=== PATIENT | male | born 1975 | race Caucasian/White ===

== ENCOUNTER → 2023-06-01 | Emergency (ER) | payer OTHER ==
[~2023-06-01] MED LIST: ASPIRIN 81 MG CHEWABLE TABLET ONE; LEVOTHYROXINE SOD 0.05 MG TABLET ONE; NA CHLORIDE 0.9% 1,000 ML ONE
[2023-06-01 22:29] LABS: Absolute Lymphocytes (CBC) 1.9 K/uL (0.7-4.9); Hematocrit 42.5 % (39.6-49.0); MCV 87.3 fL (80-100); Platelets 213 thou/uL (152-406); RBC Red Blood Cell Count 4.87 M/uL (4.33-5.43)
[2023-06-01 22:38] LABS: Protime INR 1.15
[2023-06-01 22:54] LABS: Albumin 3.7 g/dL (3.4-5.0); Bilirubin Direct 0.1 mg/dL (0-0.2); Bilirubin Indirect, Calculated 0.4 mg/dL (0.2-0.8); Bilirubin Total 0.5 mg/dL (0.2-1.0); Magnesium 1.7 mg/dL (1.6-2.4); Potassium 3.5 mEq/L (3.5-5.1); Troponin High Sensitivity 4.9 pg/mL (<58.9)
[2023-06-01 22:56] LABS: Thyroid Stimulating Hormone 9.61 uIU/mL (0.358-3.740)
--- NOTE | 2023-06-02 01:15 | ER ---
Nurse's Notes [facility] Name: Jhonny Renteria Jr Age: 47 yrs Sex: Male : 1975 Arrival Date: 06/01/2023 Time: 21:30 Bed 6 Private MD: Diagnosis: Syncope Near;Hypothyroidism, unspecified Presentation: 06/01 21:56 Chief complaint: Patient states: near syncope episode. Coronavirus screen: Client nw1 denies travel out of the [place] in the last 14 days. At this time, the client does not indicate any symptoms associated with coronavirus-19. Ebola Screen: Patient negative for fever greater than or equal to 101.5 degrees Fahrenheit, and additional compatible Ebola Virus Disease symptoms Patient denies exposure to infectious person. Patient denies travel to an Ebola-affected area in the 21 days before illness onset. No symptoms or risks identified at this time. Initial Sepsis Screen: Does the patient meet any 2 criteria? No. Patient's initial sepsis screen is negative. Does the patient have a suspected source of infection? No. Patient's initial sepsis screen is negative. Risk Assessment: Do you want to hurt yourself or someone else? Patient reports no desire to harm self or others. Onset of symptoms was June 01, 2023. 21:56 Method Of Arrival: EMS: [facility] nw1 21:56 Acuity: HALIMA 3 nw1 21:56 Chief complaint: Chief complaint: Patient states: pt was sitting in chair and felt a nw1 cramp in the left upper deltoid that started to radiate to jaw. After feeling that sensation, pt states that he started to feel as if he was going to "pass out". Pt denies any symptoms at the time of this assessment. Call light and family at bedside. Triage Assessment: 21:58 General: Appears in no apparent distress. comfortable, Behavior is calm, cooperative, nw1 appropriate for age. Pain: Complains of pain in anterior aspect of left shoulder Pain radiates to left lateral aspect of neck. Neuro: No deficits noted. Cardiovascular: Denies chest pain. Respiratory: No deficits noted. GI: No deficits noted. No signs and/or symptoms were reported involving the gastrointestinal system. : No deficits noted. No signs and/or symptoms were reported regarding the genitourinary system. Derm: No deficits noted. No signs and/or symptoms reported regarding the dermatologic system. Musculoskeletal: No deficits noted. No signs and/or symptoms reported regarding the musculoskeletal system. Historical: - Allergies: 21:58 No Known Allergies; nw1 - Home Meds: 21:58 levothyroxine 50 mcg capsule [Active]; nw1 - Immunization history:: Adult Immunizations up to date. - Social history:: Smoking status: Patient denies any tobacco usage or history of. Patient uses alcohol, caffeine, Patient/guardian denies using street drugs, IV drugs, over the counter diet medications, tobacco products. - Family history:: not pertinent. Screenin:04 [facility] ED Fall Risk Assessment (Adult) History of falling in the last 3 months, nw1 including since admission No falls in past 3 months (0 pts) Confusion or Disorientation No (0 pts) Intoxicated or Sedated No (0 pts) Impaired Gait No (0 pts) Mobility Assist Device Used No (0 pt) Altered Elimination No (0 pt) Score/Fall Risk Level 0 - 2 = Low Risk Oriented to surroundings, Maintained a safe environment, Educated pt \\T\\ family on fall prevention, incl call for assistance when getting out of bed, Assessed \\T\\ reinforced patient's understanding of fall precautions, Provided non-skid footwear, Hourly rounding (assess needs \\T\\ fall precautionary measures) done. 22:04 Abuse screen: Denies threats or abuse. Denies injuries from another. nw1 22:04 Nutritional screening: No deficits noted. Tuberculosis screening: No symptoms or risk nw1 factors identified. Assessment: 22:04 Reassessment: See triage note. Pt placed into gown and orders started. nw06/02 01:14 Reassessment: Dr. Eugenio Bryant in to speak w/ patient. Pt wants to go home now. Requested la4 IV to be taken out as pt stated he was going home and had to urinate. Pt tolerated well without difficulty. Vital Signs: 06/01 21:56 BP 134 / 88; Pulse 82; Resp 17; Pulse Ox 97% on R/A; Weight 97.52 kg; Height 5 ft. 8 nw1 in. ; 22:26 BP 119 / 76 Supine; Pulse 84; Resp 13; Pulse Ox 98% ; nw1 22:28 BP 134 / 95 Sitting; Pulse 91; Resp 16; Pulse Ox 98% on R/A; nw1 22:30 BP 136 / 96 Standing; Pulse 100; Resp 14; Pulse Ox 99% on R/A; nw1 06/02 00:25 BP 135 / 91; Pulse 86; Resp 20; Temp 98.4; Pulse Ox 98% on R/A; Pain 0/10; la4 00:30 BP 135 / 81; Pulse 86; la4 06/01 21:56 Body Mass Index 32.69 (97.52 kg, 172.72 cm) nw1 06/02 00:25 Pain Scale: Adult la4 Hayden Coma Score: 06/01 22:04 Eye Response: spontaneous(4). Motor Response: obeys commands(6). Verbal Response: nw1 oriented(5). Total: 15. 06/02 00:25 Eye Response: spontaneous(4). Motor Response: obeys commands(6). Verbal Response: la4 oriented(5). Total: 15. ED Course: 06/01 21:47 Patient arrived in ED. lg3 21:48 Eugenio Guzman MD is Attending Physician. sp4 21:52 Mary Kate Singer, TOBI is Primary Nurse. nw1 21:58 Triage completed. nw1 21:58 Arm band placed on right wrist. EKG completed in triage. Results shown to MD. EKG done nw1 per protocol. Labs ordered per protocol. 22:04 Patient has correct armband on for positive identification. Placed in gown. Bed in low nw1 position. Call light in reach. Side rails up X2. Adult w/ patient. Provided Education on: POC. 22:04 Client placed on continuous cardiac and pulse oximetry monitoring. NIBP monitoring nw1 applied. spray ii painter on. Pulse ox on. NIBP on. Door closed. Warm blanket given. 22:04 No provider procedures requiring assistance completed. Maintain EMS IV. Dressing nw1 intact. Good blood return noted. Site clean \\T\\ dry. Gauge \\T\\ site: 20 G LAC. 22:06 Radiology exam delayed due to lab results not completed at this time. (BUN/Creatinine). eh4 22:13 Basic Metabolic Panel Sent. nw1 22:24 TSH Sent. nw1 22:24 T4 Free Sent. nw1 22:24 CBC with Diff Sent. nw 22:24 LFT's Sent. nw1 22:24 Magnesium Sent. nw1 22:24 NT PRO-BNP Sent. nw1 22:24 PT-INR Sent. nw1 22:24 Troponin HS Sent. nw1 23:24 CT Aorta for Dissection In Process Unspecified. EDMS 06/02 00:25 IV discontinued, intact, bleeding controlled, No redness/swelling at site. Pressure la4 dressing applied. Administered Medications: 06/01 22:11 Drug: Aspirin PO Chewable Tablet 324 mg PO once; 81 mg tablets x 4 Route: PO; la4 22:11 Drug: NS 0.9% IV 1000 ml IV at 1 bolus Per protocol; 1000 mL bolus Route: IV; Rate: 1 la4 bolus; Site: left antecubital; 06/02 00:30 Follow up: BP 135 / 81; Pulse 86 bpm; Response: No adverse reaction; Marked relief of la4 symptoms; IV Status: Completed infusion; IV Intake: 1000ml 00:30 Drug: Synthroid PO 50 mcg PO once Route: PO; la4 Medication: 06/01 22:04 VIS not applicable for this client. nw1 Intake: 06/02 00:30 IV: 1000ml; Total: 1000ml. la4 Outcome: 00:25 Discharged to home with significant other, la4 00:25 Condition: stable 00:25 Discharge instructions given to patient, significant other, Instructed on discharge instructions, follow up and referral plans. Demonstrated understanding of instructions, follow-up care, medications, 01:15 Discharge ordered by . sp4 01:23 Patient left the ED. nw1 Signatures: Dispatcher [employer] EDMS Joie Caba RN RN 3 Cesar Echols [facility] Eugenio Guzman MD MD sp4 Conrado Pak RN RN la4 Mary Kate Singer, TOBI RN nw1 Corrections: (The following items were deleted from the chart) 06/01 22:24 21:56 97.52 kg; Height 5 ft. 8 in.; BMI: 32.6; nw1 nw1
--- NOTE | 2023-06-02 01:15 | EDPHYS ---
Physician Documentation [facility] Name: Jhonny Renteria Jr Age: 47 yrs Sex: Male : 1975 Arrival Date: 06/01/2023 Time: 21:30 Bed 6 Private MD: ED Physician Eugenio Guzman HPI: 06/01 21:51 This 47 yrs old Male presents to ER via Unassigned with complaints of Near sp4 syncope, left shoulder pain. 06/02 00:08 Patient is a 47-year-old male who presents with EMS for acute onset of left shoulder sp4 and left neck pain just prior to arrival associated with dizziness and near syncopal episode at work. Patient was initially tachycardic at 122- 106 heart rate is noted by EMS, blood pressure was fairly normal . Denies history of hypothyroidism and he should be on Synthroid 50 mcg daily but he has not been on it for probably 2 months.. Patient states he ran out of his medication and never bothered to refill it. Has no history of syncope or near syncope. States that this time he feels pretty good.. Historical: - Allergies: 06/01 21:58 No Known Allergies; nw1 - Home Meds: 21:58 levothyroxine 50 mcg capsule [Active]; nw1 - Immunization history:: Adult Immunizations up to date. - Social history:: Smoking status: Patient denies any tobacco usage or history of. Patient uses alcohol, caffeine, Patient/guardian denies using street drugs, IV drugs, over the counter diet medications, tobacco products. - Family history:: not pertinent. ROS: 06/02 00:08 Constitutional: Negative for fever, chills, and weight loss, positive near syncope and sp4 positive left shoulder pain. All other systems are negative, Exam: 00:08 Constitutional: This is a well developed, well nourished patient who is awake, alert, sp4 and in no acute distress. Head/Face: Normocephalic, atraumatic. Eyes: Pupils equal round and reactive to light, extra-ocular motions intact. Lids and lashes normal. Conjunctiva and sclera are not injected. Cornea within normal limits. Periorbital areas with no swelling, redness, or edema. ENT: Nares patent. No nasal discharge, no septal abnormalities noted. Tympanic membranes are normal and external auditory canals are clear. Oropharynx with no redness, swelling, or masses, exudates, or evidence of obstruction, uvula midline. Mucous membranes moist. Neck: Trachea midline, no thyromegaly or masses palpated, and no cervical lymphadenopathy. Supple, full range of motion without nuchal rigidity, or vertebral point tenderness. Chest/axilla: Normal chest wall appearance and motion. Nontender with no deformity. No lesions are appreciated. Cardiovascular: Regular rate and rhythm with a normal S1 and S2. No gallops, murmurs, or rubs. Normal PMI, no JVD. No pulse deficits. Respiratory: Lungs have equal breath sounds bilaterally, clear to auscultation and percussion. No rales, rhonchi or wheezes noted. No increased work of breathing, no retractions or nasal flaring. Abdomen/GI: Soft, non-tender, with normal bowel sounds. No distension or tympany. No guarding or rebound. No evidence of tenderness throughout. Back: No spinal tenderness. No costovertebral tenderness. There is sacral decubitus ulcer that is covered by the wound VAC. Skin: Warm, dry with normal turgor. Normal color with no rashes, no lesions, and no evidence of cellulitis. MS/ Extremity: Pulses equal, no cyanosis. Neurovascular intact. Full, normal range of motion. Neuro: Awake and alert, GCS 15, oriented to person, place, time, and situation. Cranial nerves II-XII grossly intact. Motor strength 5/5 in all extremities. Sensory grossly intact. Psych: Awake, alert, with orientation to person, place and time. Behavior, mood, and affect are within normal limits 00:09 ECG was reviewed by the Attending Physician. EKG 2210. EKG at 2210 reveals normal sp4 sinus rhythm at a rate of 87. No ectopy. Vital Signs: 06/01 21:56 BP 134 / 88; Pulse 82; Resp 17; Pulse Ox 97% on R/A; Weight 97.52 kg; Height 5 ft. 8 nw1 in. ; 22:26 BP 119 / 76 Supine; Pulse 84; Resp 13; Pulse Ox 98% ; nw1 22:28 BP 134 / 95 Sitting; Pulse 91; Resp 16; Pulse Ox 98% on R/A; nw1 22:30 BP 136 / 96 Standing; Pulse 100; Resp 14; Pulse Ox 99% on R/A; nw1 06/02 00:25 BP 135 / 91; Pulse 86; Resp 20; Temp 98.4; Pulse Ox 98% on R/A; Pain 0/10; la4 00:30 BP 135 / 81; Pulse 86; la4 06/01 21:56 Body Mass Index 32.69 (97.52 kg, 172.72 cm) nw1 06/02 00:25 Pain Scale: Adult la4 Lykens Coma Score: 06/01 22:04 Eye Response: spontaneous(4). Motor Response: obeys commands(6). Verbal Response: nw1 oriented(5). Total: 15. 06/02 00:25 Eye Response: spontaneous(4). Motor Response: obeys commands(6). Verbal Response: la4 oriented(5). Total: 15. MDM: 06/01 22:04 Patient medically screened. sp4 06/02 01:12 ED course: EXAM: CTAngiography Chest, Abdomen and Pelvis With Intravenous Contrast sp4 CLINICAL HISTORY: The patient is 47 years old and is Male; chest pain , near syncope TECHNIQUE: Axial computed tomographic angiography images of the chest, abdomen and pelvis with intravenous contrast. Sagittal and coronal reformatted images were created and reviewed. This CT exam was performed using one or more of the following dose reduction techniques: automated exposure control, adjustment of the mA and/or kV according to patient size, and/or use of iterative reconstruction technique. MIP reconstructed images were created and reviewed. COMPARISON: No relevant prior studies available. FINDINGS: VASCULATURE: Aorta: No acute findings. No aortic aneurysm. No dissection. Pulmonary arteries: Unremarkable as visualized. No pulmonary embolism is identified. Great vessels of aortic arch: No acute findings. No dissection. No arterial occlusion or significant stenosis. Celiac trunk and mesenteric arteries: No acute findings. No occlusion or significant stenosis. Renal arteries: No acute findings. No occlusion or significant stenosis. Iliac arteries: No acute findings. No occlusion or significant stenosis. CHEST: Lungs: Calcified granuloma in the right lung base. No mass. No consolidation. Pleural space: Unremarkable. No significant effusion. No pneumothorax. Heart: Unremarkable. No cardiomegaly. No significant pericardial effusion. Mediastinum: There may be a small hiatal hernia. ABDOMEN: Liver: 1.5 cm hypoattenuating lesion in the right anterior liver which is nonspecific but may represent a hemangioma. Gallbladder and bile ducts: Unremarkable. No calcified stones. No ductal dilation. Pancreas: Unremarkable. No ductal dilation. No mass. Spleen: Unremarkable. No splenomegaly. Adrenals: Unremarkable. No mass. Kidneys and ureters: Unremarkable. No hydronephrosis. No solid mass. Stomach and bowel: Scattered colonic diverticula. No obstruction. No mucosal thickening. PELVIS: Appendix: The appendix is normal. Bladder: Unremarkable. No mass. Reproductive: Unremarkable as visualized. CHEST, ABDOMEN and PELVIS: Intraperitoneal space: Unremarkable. No significant fluid collection. No free air. Bones/joints: Partially visualized postsurgical changes in the lower cervical spine. No acute fracture. No dislocation. Soft tissues: Mild gynecomastia. Lymph nodes: Unremarkable. No enlarged lymph nodes. IMPRESSION: No acute findings in the visualized arteries of the chest, abdomen or pelvis. . 01:18 Differential Diagnosis altered mental status, sepsis, flu. Data reviewed: vital signs, 4 nurses notes, EMS record, lab test result(s), cardiac enzymes, CBC, hepatic panel, EKG, radiologic studies, CT scan. Consideration of Admission/Observation Escalation of care including admission/observation considered. ED course: TSH elevated but other than that unremarkable workup. Patient stable for discharge home. Advised to restart Synthroid 50 mcg daily. Will advise follow-up with manager orange in 7 to 10 days. Return to ER precautions discussed with patient in detail.. 06/01 21:49 Order name: Basic Metabolic Panel; Complete Time: 00:04 [facility] 06/01 21:49 Order name: CBC with Diff; Complete Time: 00:04 [facility] 06/01 21:49 Order name: LFT's; Complete Time: 00:04 [facility] 06/01 21:49 Order name: Magnesium; Complete Time: 00:04 [facility] 06/01 21:49 Order name: NT PRO-BNP; Complete Time: 00:04 [facility] 06/01 21:49 Order name: PT-INR; Complete Time: 00:04 [facility] 06/01 21:49 Order name: Troponin HS; Complete Time: 00:04 [facility] 06/01 21:49 Order name: TSH; Complete Time: 00:04 [facility] 06/01 21:49 Order name: T4 Free; Complete Time: 00:04 [facility] 06/01 21:49 Order name: CT Aorta for Dissection sp4 06/01 21:49 Order name: EKG; Complete Time: 21:49 sp4 06/01 21:49 Order name: Cardiac monitoring; Complete Time: 22:06 sp4 06/01 21:49 Order name: EKG - Nurse/Tech; Complete Time: 22:13 sp4 06/01 21:49 Order name: IV Saline Lock; Complete Time: 22:13 sp4 06/01 21:49 Order name: Labs collected and sent; Complete Time: 22:13 sp4 06/01 21:49 Order name: O2 Per Protocol; Complete Time: 22:13 sp4 06/01 21:49 Order name: O2 Sat Monitoring; Complete Time: 22:13 sp4 06/01 21:50 Order name: Orthostatic Blood Pressure; Complete Time: :31 sp4 EC:09 Rate is 87 beats/min. Rhythm is regular, Normal Sinus Rhythm. QRS Bailey is Normal. LA sp4 interval is normal. QRS interval is normal. QT interval is normal. No Q waves. T waves are Normal. No ST changes noted. Clinical impression: Normal ECG. Interpreted by me. Reviewed by me. Administered Medications: 06/01 22:11 Drug: Aspirin PO Chewable Tablet 324 mg PO once; 81 mg tablets x 4 Route: PO; la4 22:11 Drug: NS 0.9% IV 1000 ml IV at 1 bolus Per protocol; 1000 mL bolus Route: IV; Rate: 1 la4 bolus; Site: left antecubital; 06/02 00:30 Follow up: BP 135 / 81; Pulse 86 bpm; Response: No adverse reaction; Marked relief of la4 symptoms; IV Status: Completed infusion; IV Intake: 1000ml 00:30 Drug: Synthroid PO 50 mcg PO once Route: PO; la4 Disposition Summary: 06/02/23 01:15 Discharge Ordered Notes: Please see your primary MD for medication refills Location: Home sp4 Problem: new sp4 Symptoms: have improved sp4 Condition: Stable sp4 Diagnosis - Syncope Near sp4 - Hypothyroidism, unspecified sp4 Followup: sp4 - With: Private Physician - When: 7 - 10 days - Reason: Recheck today's complaints Discharge Instructions: - Discharge Summary Sheet sp4 - Hypothyroidism sp4 Forms: - Patient Portal Instructions sp4 Prescriptions: - Synthroid 50 mcg Oral tablet - take 1 tablet ORAL route daily; 30 tablet; Refills: 0, Product Selection sp4 Permitted Signatures: Dispatcher [employer] Eugenio Cuba MD MD sp4 Conrado Pak RN RN la4 Mary Kate Singer RN RN nw1
[2023-06-02 05:00] VITALS: BP 135/81; TEMP 98.4; O2SAT 98
--- NOTE | 2023-06-02 18:50 | RAD REPORT ---
EXAM DESCRIPTION: CT Angiography Chest, Abdomen and Pelvis With Intravenous Contrast CLINICAL HISTORY: The patient is 47 years old and is Male; chest pain , near syncope TECHNIQUE: Axial computed tomographic angiography images of the chest, abdomen and pelvis with intra venous contrast. Sagittal and coronal reformatted images were created and reviewed. This CT exam was performed using one or more of the following dose reduction techniques: automated exposure cont rol, adjustment of the mA and/or kV according to patient size, and/or use of iterative reconstruction technique. MIP reconstructed images were created and reviewed. COMPARISON: No relevant prior studies available. FINDINGS: VASCULATURE: Aorta: No acute findings. No aortic aneurysm. No dissection. Pulmonary arteries: Unremarkable as visualized. No pulmonary embolism is identified. Great vessels of aortic arch: No acute findings. No dissection. No arterial occlusion or sign ificant stenosis. Celiac trunk and mesenteric arteries: No acute findings. No occlusion or significant stenosis. Renal arteries: No acute findings. No occlusion or significant stenosis. Iliac arteries: No acute findings. No occlusion or significant stenosis. CHEST: Lungs: Calcified granuloma in the right lung base. No mass. No consolidation. Pleural space: Unremarkable. No significant effusion. No pneumothorax. Heart: Unremarkable. No cardiomegaly. No significant pericardial effusion. Mediastinum: There may be a small hiatal hernia. ABDOMEN: Liver: 1.5 cm hypoattenuating lesion in the right anterior liver which is nonspecific but may rep resent a hemangioma. Gallbladder and bile ducts: Unremarkable. No calcified stones. No ductal dilation. Pancreas: Unremarkable. No ductal dilation. No mass. Spleen: Unremarkable. No splenomegaly. Adrenals: Unremarkable. No mass. Kidneys and ureters: Unremarkable. No hydronephrosis. No solid mass. Stomach and bowel: Scattered colonic diverticula. No obstruction. No mucosal thickening. PELVIS: Appendix: The appendix is normal. Bladder: Unremarkable. No mass. Reproductive: Unremarkable as visualized. CHEST, ABDOMEN and PELVIS: Intraperitoneal space: Unremarkable. No significant fluid collection. No free air. Bones/joints: Partially visualized postsurgical changes in the lower cervical spine. No acute fracture. No dislocation. Soft tissues: Mild gynecomastia. Lymph nodes: Unremarkable. No enlarged lymph nodes. IMPRESSION: No acute findings in the visualized arteries of the chest, abdomen or pelvis. Electronically signed by: Gavin Hu MD 06/02/2023 12:49 AM RAIL TRACK MAINTAINER Due to temporary technical issues with the PACS/Fluency reporting system, reports are being signed by the in house radiologists without review as a courtesy to insure prompt reporting. The interpreting radiologist is fully responsible for the content of the report.
--- NOTE | 2023-06-04 17:06 | EKG ---
Test Date: 2023-06-01 Test Time: 22:10:39 Chief Physical Therapist: KRISTYN MEASUREMENT RESULTS: Intervals: Rate: 87 MO: 138 QRSD: 88 QT: 362 QTc: 435 [place]: P: 26 MO: 138 QRS: 54 T: 14 INTERPRETIVE STATEMENTS: Normal sinus rhythm Normal ECG Compared to ECG 09/18/2008 11:43:53 Sinus arrhythmia no longer present Electronically Signed On 06-04-23 16:59:25 [employer] by Kolby Lundberg
== END ==
LOC: ER 21:30
DX: R55 Syncope and collapse (principal); E03.9 Hypothyroidism, unspecified; R07.89 Other chest pain
CPT/HCPCS: 96361; 93005; 85025; 80048; 36415; 83735; 85610; 80076; 84443; 84484; 84439; 83880; 71275; 74175; 96360; 99285; Q9967; J7030

== ENCOUNTER 2024-09-09 04:35 | Emergency (ER) | payer OTHER ==
[2024-09-09] MEDS ORDERED: LIDOCAINE 1% 20 ML MDV ONE (05:05)
[2024-09-09] MEDS ORDERED: IBUPROFEN 400 MG TAB ONE (05:06)
[2024-09-09] MEDS ORDERED: SMZ./TMP. 800/160 MG TABLET ONE (05:06)
[2024-09-09] MEDS ORDERED: ONDANSETRON 4 MG (ODT) TAB ONE (05:06)
--- NOTE | 2024-09-09 05:56 | ER ---
Nurse's Notes [facility] Name: Jhonny Renteria Jr Age: 48 yrs Sex: Male : 1975 Arrival Date: 09/09/2024 Time: 04:35 Bed 6 Private MD: Diagnosis: Cutaneous abscess of right lower limb;Cutaneous abscess right medial knee skin Presentation: 09/09 05:08 Chief complaint: Patient states: I have an abscess on the right inner part of my leg kd3 that has been there for about a week. It hurts and is throbbing now. Coronavirus screen: Vaccine status: unknown. Ebola Screen: No symptoms or risks identified at this time. Initial Sepsis Screen: Does the patient meet any 2 criteria? No. Patient's initial sepsis screen is negative. Does the patient have a suspected source of infection? No. Patient's initial sepsis screen is negative. Initial Sepsis Screen: Does the patient meet any 2 criteria?. Risk Assessment: Do you want to hurt yourself or someone else? Patient reports no desire to harm self or others. Onset of symptoms was September 09, 2024. 05:08 Method Of Arrival: Ambulatory kd3 05:08 Acuity: HALIMA 4 kd3 Triage Assessment: 05:10 General: Appears in no apparent distress. Behavior is calm, cooperative. Neuro: Level kd3 of Consciousness is awake, alert, obeys commands, Oriented to person, place, time, situation. Historical: - Home Meds: 05:10 levothyroxine 50 mcg capsule [Active]; kd3 - Immunization history:: Adult Immunizations up to date. - Infectious Disease History:: Denies. - Social history:: Smoking status: unknown. - Family history:: not pertinent. Screenin:06 [facility] ED Fall Risk Assessment (Adult) History of falling in the last 3 months, kd3 including since admission No falls in past 3 months (0 pts) Confusion or Disorientation No (0 pts) Intoxicated or Sedated No (0 pts) Impaired Gait No (0 pts) Mobility Assist Device Used No (0 pt) Altered Elimination No (0 pt) Score/Fall Risk Level 0 - 2 = Low Risk Oriented to surroundings. Abuse screen: Denies threats or abuse. Denies injuries from another. Nutritional screening: No deficits noted. Tuberculosis screening: No symptoms or risk factors identified. Assessment: 05:03 General: Appears in no apparent distress. Behavior is calm, cooperative. Pain: kd3 Complains of pain in medial aspect of right thigh. Neuro: Level of Consciousness is awake, alert, obeys commands, Oriented to person, place, time, situation. Cardiovascular: Patient's skin is warm and dry. Respiratory: Airway is patent Trachea midline Respiratory effort is even, unlabored, Respiratory pattern is regular, symmetrical. Vital Signs: 05:08 BP 136 / 96; Pulse 59; Resp 18; Temp 97(O); Pulse Ox 98% on R/A; Weight 99.79 kg; kd3 Height 5 ft. 8 in. ; 06:06 BP 113 / 77; Pulse 74; Resp 18; Pulse Ox 98% on R/A; kd3 05:08 Body Mass Index 33.45 (99.79 kg, 172.72 cm) kd3 [place] Coma Score: 21:40 Eye Response: spontaneous(4). Motor Response: obeys commands(6). Verbal Response: sp4 oriented(5). Total: 15. ED Course: 04:42 Patient arrived in ED. gm2 04:57 Eugenio Guzman MD is Attending Physician. sp4 05:03 Isabella Rodriges, TOBI is Primary Nurse. kd3 05:10 Triage completed. kd3 05:10 Arm band placed on right wrist. kd3 06:06 No provider procedures requiring assistance completed. Patient did not have IV access kd3 during this emergency room visit. 06:07 Provided Education on: antibiotics. kd3 06:07 Patient has correct armband on for positive identification. kd3 Administered Medications: 05:08 Drug: Trimethoprim-Sulfamethoxazole PO (160 mg-800 mg (DS) 1 tablet PO once Route: PO; kd3 05:08 Drug: Ibuprofen PO 800 mg PO once Route: PO; kd3 05:08 Drug: Ondansetron PO 4 mg PO once Route: PO; kd3 06:05 Drug: Lidocaine Infiltration (1 %) 20 ml 20 ml Infiltration once; to bedside Volume: 20 kd3 ml; Route: Infiltration; Medication: 06:07 VIS not applicable for this client. kd3 Outcome: 05:56 Discharge ordered by . sp4 06:06 Discharged to home ambulatory, kd3 06:06 Condition: stable 06:06 Discharge instructions given to patient, Instructed on discharge instructions, follow up and referral plans. Demonstrated understanding of instructions, follow-up care, medications, Prescriptions given X 2, 06:07 Patient left the ED. kd3 Signatures: Isabella Rodriges RN RN kd3 Eugenio Guzman MD MD sp4 Sandy Nichols gm2
--- NOTE | 2024-09-09 05:57 | EDPHYS ---
Physician Documentation [facility] Name: Jhonny Renteria Jr Age: 48 yrs Sex: Male : 1975 Arrival Date: 09/09/2024 Time: 04:35 Bed 6 Private MD: ED Physician Eugenio Guzman HPI: 09/09 04:57 This 48 yrs old Male presents to ER via Unassigned with complaints of Abscess.sp4 21:40 Patient presents with redness tenderness swelling and developing abscess to the skin of sp4 the right lower extremity just medial to the right knee. Historical: - Home Meds: 05:10 levothyroxine 50 mcg capsule [Active]; kd3 - Immunization history:: Adult Immunizations up to date. - Infectious Disease History:: Denies. - Social history:: Smoking status: unknown. - Family history:: not pertinent. ROS: 21:40 Constitutional: Negative for fever, chills, and weight loss, positive right lower sp4 extremity redness tenderness swelling and developing abscess 21:40 All other systems are negative, Exam: 21:40 Constitutional: This is a well developed, well nourished patient who is awake, alert, sp4 and in no acute distress. Head/Face: Normocephalic, atraumatic. Eyes: Pupils equal round and reactive to light, extra-ocular motions intact. Lids and lashes normal. Conjunctiva and sclera are not injected. Cornea within normal limits. Periorbital areas with no swelling, redness, or edema. ENT: Nares patent. No nasal discharge, no septal abnormalities noted. Tympanic membranes are normal and external auditory canals are clear. Oropharynx with no redness, swelling, or masses, exudates, or evidence of obstruction, uvula midline. Mucous membranes moist. Neck: Trachea midline, no thyromegaly or masses palpated, and no cervical lymphadenopathy. Supple, full range of motion without nuchal rigidity, or vertebral point tenderness. Chest/axilla: Normal chest wall appearance and motion. Nontender with no deformity. No lesions are appreciated. Cardiovascular: Regular rate and rhythm with a normal S1 and S2. No gallops, murmurs, or rubs. Normal PMI, no JVD. No pulse deficits. Respiratory: Lungs have equal breath sounds bilaterally, clear to auscultation and percussion. No rales, rhonchi or wheezes noted. No increased work of breathing, no retractions or nasal flaring. Abdomen/GI: Soft, with normal bowel sounds. No distension or tympany. No guarding or rebound. No evidence of tenderness throughout. Back: No spinal tenderness. No costovertebral tenderness. Skin: Warm, dry with normal turgor. Normal color with no rashes, there is induration redness tenderness swelling consistent with small abscess to the skin just medial to the right knee MS/ Extremity: Pulses equal, no cyanosis. Neurovascular intact. Full, normal range of motion. Neuro: Awake and alert, GCS 15, oriented to person, place, time, and situation. Cranial nerves II-XII grossly intact. Motor strength 5/5 in all extremities. Sensory grossly intact. Vital Signs: 05:08 BP 136 / 96; Pulse 59; Resp 18; Temp 97(O); Pulse Ox 98% on R/A; Weight 99.79 kg; kd3 Height 5 ft. 8 in. ; 06:06 BP 113 / 77; Pulse 74; Resp 18; Pulse Ox 98% on R/A; kd3 05:08 Body Mass Index 33.45 (99.79 kg, 172.72 cm) kd3 [place] Coma Score: 21:40 Eye Response: spontaneous(4). Motor Response: obeys commands(6). Verbal Response: sp4 oriented(5). Total: 15. Procedures: 05:50 I \T\ D: Incision and drainage was performed for an abscess of the right medial aspect of sp4 right knee Prepped with Betadine, alcohol, Anesthetized with 20 ml's 1% Lidocaine. Incised with #11 blade. Drained small amount purulent fluid. bloody fluid. Packed with sterile gauze, Dressing: sterile 4x4 gauze, Kerlix the patient tolerated the procedure well. MDM: 05:03 Medical Screening Exam initiated sp4 21:40 Differential diagnosis: abscess, allergic reaction, cellulitis, insect bite. Data sp4 reviewed: vital signs, nurses notes, old medical records. Consideration of Admission/Observation Escalation of care including admission/observation considered. ED course: Abscess was drained and packed. Patient stable for discharge. Instructions provided on abscess care. 09/09 05:03 Order name: Dressing - Wound; Complete Time: 06:05 sp4 09/09 05:03 Order name: Gloves, Sterile; Complete Time: 06:05 sp4 09/09 05:03 Order name: Setup Suture Tray; Complete Time: 06:05 sp4 Administered Medications: 05:08 Drug: Trimethoprim-Sulfamethoxazole PO (160 mg-800 mg (DS) 1 tablet PO once Route: PO; kd3 05:08 Drug: Ibuprofen PO 800 mg PO once Route: PO; kd3 05:08 Drug: Ondansetron PO 4 mg PO once Route: PO; kd3 06:05 Drug: Lidocaine Infiltration (1 %) 20 ml 20 ml Infiltration once; to bedside Volume: 20 kd3 ml; Route: Infiltration; Disposition Summary: 09/09/24 05:56 Discharge Ordered Notes: Location: Home sp4 Problem: new sp4 Symptoms: have improved sp4 Condition: Stable sp4 Diagnosis - Cutaneous abscess of right lower limb sp4 - Cutaneous abscess right medial knee skin sp4 Followup: sp4 - With: Private Physician - When: 7 - 10 days - Reason: Recheck today's complaints Discharge Instructions: - Discharge Summary Sheet sp4 - Incision and Drainage sp4 Forms: - Patient Portal Instructions sp4 Prescriptions: - Bactrim DS 800-160 mg Oral Tablet - take 1 tablet ORAL route every 12 hours for 10 days; 20 tablet; Refills: 0, sp4 Product Selection Permitted - ondansetron 8 mg Oral Tablet,disintegrating - take 1 tablet ORAL route every 8 hours PRN nausea; 30 tablet; Refills: 0, sp4 Product Selection Permitted Signatures: Isabella Rodriges RN RN kd3 Eugenio Guzman MD MD sp4
[2024-09-09 06:12] VITALS: TEMP 97; O2SAT 98
[2024-09-09 06:13] VITALS: BP 113/77
== END 2024-09-09 06:07 | disposition home or self-care (01) ==
LOC: ER 04:35
PROC: 0H9KXZZ Drainage of Right Lower Leg Skin, External Approach (ICD-10-PCS; principal; 2024-09-09)
DX: L02.415 Cutaneous abscess of right lower limb (principal)
CPT/HCPCS: 99283; 10060; Q0162; J2003